=== PATIENT | male | born 1955 | race Caucasian/White ===

== ENCOUNTER 2018-07-17 11:08 | Emergency (ER) | payer BC, SELFPAY ==
[2018-07-17 11:12] VITALS: BP 158/118; PULSE 100; RESP 16; TEMP 36.8; O2SAT 98
--- NOTE | 2018-07-17 11:21 | W.ED.GENAD ---
Discharge Plan Disposition Patient Disposition: HOME Condition: Good Discharge Details Chief Complaint: RashLesion Clinical Impression: Atopic dermatitis Primary Care Provider: Abbi Ren ED Provider: Gera White Home Meds and New Rx's Prescriptions: New hydroxyzine HCl 25 mg tablet 25 mg PO QID PRN (Reason: itching) Qty: 30 RF: 0 prednisone 50 mg tablet 50 mg PO DAILY Qty: 5 RF: 0 No Action acetaminophen-codeine [Tylenol-Codeine #3] 1 EACH tablet 1 ea PO PRN PRNRF: 0 atorvastatin [Lipitor] 40 mg Tablet 40 mg PO DAILY RF: 0 tamsulosin [Flomax] 0.4 mg Capsule RF: 0 Discharge Instructions Instructions: Contact Dermatitis (ED) Additional Instructions: Please take medication as directed. If you notice any worsening of your symptoms, or any new symptoms such as difficulty breathing, vomiting, diarrhea, difficulty swallowing, vomiting, diarrhea, fever, chills, shortness of breath, chest pain, numbness, weakness, or fainting , please return immediately to the emergency department for reevaluation. Please follow up with your primary care provider as soon as possible for reassessment and reevaluation. As always, it was a pleasure participating in your medical care today. Referrals: Abbi Ren [Primary Care Provider] - Medical Decision Making This is a 63-year-old male with no significant past medical history except for previous atopic dermatitis who presents for rash on his wrists, flanks, feet, and elbows. Patient's physical exam demonstrates signs and symptoms consistent with atopic dermatitis, history reveals no aggravating factor. No new medications, antibiotics, recent travel, tick bites, hiking in the [facility] or the [facility]. Physical exam demonstrates dermatographia, negative Nikolsky sign, no oral lesions. Patient is notably pruritic. We will give him Atarax and prednisone here. He will be discharged home with close follow-up with his primary care provider. I had a long discussion regarding red flags for which to immediately return. I have extensively reviewed the treatment plan and discharge instructions with the patient. I have addressed all patient concerns at this time. The patient was made aware of what symptoms to monitor for that would warrant a return to the emergency department. Discussed the plan with the patient, they demonstrate verbal understanding and agreement with our assessment and plan at this time. HPI General Date/Time Provider Initiated Documentation: 07/17/18 11:19. HPI Narrative: This is a 63-year-old male with a past medical history of atopic dermatitis, hematoma surgery a few months ago, and recent throat surgery for sialolith 10 days ago. He presents today for evaluation of rash for the last 48 hours. States that started on his wrists, his bilateral flanks, elbows, knees, and some by his feet and ankles. It is extremely pruritic. He has been taking Benadryl at home as well as [id number] cortisone cream with mild improvement of his symptoms. He did call his primary care provider, they recommended eventual follow-up with dermatology. Patient denies any systemic symptoms of fever, chills, oral lesions, chest pain, shortness of breath, vomiting, diarrhea. He is on no new medications, he is not taking any pain medications. He denies any changes in detergents or soaps. He has no pets, he has not been having any significant activity outside as of late. Patient denies any other aggravating or relieving components. Patient denies any IV or illicit drug use. He denies any pertinent family history. He denies any family history of significant allergy. He himself denies any significant previous history of focal allergies. He denies any recent antibiotic use. Related Data Home Medications Medication Instructions Recorded Confirmed acetaminophen-codeine [Tylenol 1 ea PO PRN PRN 12/24/12 07/17/18 with Codeine #3 Tablet] atorvastatin [Lipitor] 40 mg PO DAILY 07/17/18 07/17/18 hydroxyzine HCl 25 mg PO QID PRN #30 tab 07/17/18 prednisone 50 mg PO DAILY #5 tab 07/17/18 tamsulosin [Flomax] 07/17/18 Previous Rx's Medication Instructions Recorded hydroxyzine HCl 25 mg PO QID PRN #30 tab 07/17/18 prednisone 50 mg PO DAILY #5 tab 07/17/18 Allergies Allergy/AdvReac Type Severity Reaction Status Date / Time No Known Allergies Allergy Unverified 07/17/18 11:21 General Stated Complaint: RashLesion JESSICA: 5 Review of Systems Review of Systems All systems reviewed & are unremarkable except as noted in HPI and below PFSH Social History Smoking/Tobacco Use Status: Former Tobacco Use Exam Narrative Exam Narrative: 1.Const: Well-nourished, Well-developed, appearing stated age 2.Eyes: PERRL, no conjunctival injection, and symmetrical lids. 3.ENT: Atraumatic external nose and ears. Moist MM. Neck: Symmetric, trachea midline, No thyromegaly. No evidence of oral lesions, airway compromise, oropharyngeal edema. 4.CVS: +S1/S2, No murmurs or gallops. Peripheral pulses 2+ and equal in all extremities. Brisk capillary refill in all extremities. 5.RESP: Unlabored respiratory effort. Clear to auscultation bilaterally. No wheezes rales or rhonchi 6.GI: Soft, Nontender/Nondistended, No hepatosplenomegaly. No guarding or rebound. 7.MSK: Normocephalic/Atraumatic, Extremities w/o deformity or ttp No cyanosis or clubbing, Normal movement of all extremities 8.Skin: Warm, Dry. Mildly erythematous flat macular blanching areas of atopic dermatitis on the patient's wrists, none on the hands. Some evidence of erythema on the elbows, as well as the patient's back flanks bilaterally. As well as some erythema on the feet. All is notably pruritic. Negative Nikolsky sign. Patient does demonstrate dermatographia on exam. No other significant lesions, no vesicles, no bulla. No evidence of tics, arthropods, or hymenoptera bites. 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 Sensation grossly intact, no focal neurologic deficits. 10.Psych: (AAO) x3. Appropriate mood and affect Course Vital Signs Temperature 36.8 C 07/17/18 11:12 Pulse 100 H 07/17/18 11:12 Respiratory Rate 16 07/17/18 11:12 Blood Pressure 158/118 H 07/17/18 11:12 Pulse Oximetry 98 07/17/18 11:12 Temperature 36.8 C 07/17/18 11:12 Temperature Source Skin 07/17/18 11:12 Pulse 100 H 07/17/18 11:12 Respiratory Rate 16 07/17/18 11:12 Respiratory Effort Non-Labored 07/17/18 11:14 Blood Pressure 158/118 H 07/17/18 11:12 Pulse Oximetry 98 07/17/18 11:12
[2018-07-17] MEDS: hydrOXYzine HCL 25 MG TAB PO (11:26)
--- NOTE | 2018-07-17 11:36 | ED.GENADUL_ITS ---
Discharge Plan Disposition Patient Disposition: HOME Condition: Good Discharge Details Chief Complaint: RashLesion Clinical Impression: Atopic dermatitis Primary Care Provider: Abib Ren ED Provider: Gera White Home Meds and New Rx's Prescriptions: New hydroxyzine HCl 25 mg tablet 25 mg PO QID PRN (Reason: itching) Qty: 30 RF: 0 prednisone 50 mg tablet 50 mg PO DAILY Qty: 5 RF: 0 No Action acetaminophen-codeine [Tylenol-Codeine #3] 1 EACH tablet 1 ea PO PRN PRNRF: 0 atorvastatin [Lipitor] 40 mg Tablet 40 mg PO DAILY RF: 0 tamsulosin [Flomax] 0.4 mg Capsule RF: 0 Discharge Instructions Instructions: Contact Dermatitis (ED) Additional Instructions: Please take medication as directed. If you notice any worsening of your symptoms, or any new symptoms such as difficulty breathing, vomiting, diarrhea, difficulty swallowing, vomiting, diarrhea, fever, chills, shortness of breath, chest pain, numbness, weakness, or fainting , please return immediately to the emergency department for reevaluation. Please follow up with your primary care provider as soon as possible for reassessment and reevaluation. As always, it was a pleasure participating in your medical care today. Referrals: Abbi Ren [Primary Care Provider] - Medical Decision Making This is a 63-year-old male with no significant past medical history except for previous atopic dermatitis who presents for rash on his wrists, flanks, feet, and elbows. Patient's physical exam demonstrates signs and symptoms consistent with atopic dermatitis, history reveals no aggravating factor. No new medications, antibiotics, recent travel, tick bites, hiking in the [facility] or the [facility]. Physical exam demonstrates dermatographia, negative Nikolsky sign, no oral lesions. Patient is notably pruritic. We will give him Atarax and prednisone here. He will be discharged home with close follow-up with his primary care provider. I had a long discussion regarding red flags for which to immediately return. I have extensively reviewed the treatment plan and discharge instructions with the patient. I have addressed all patient concerns at this time. The patient was made aware of what symptoms to monitor for that would warrant a return to the emergency department. Discussed the plan with the patient, they demonstrate verbal understanding and agreement with our assessment and plan at this time. HPI General Date/Time Provider Initiated Documentation: 07/17/18 11:19 . HPI Narrative: This is a 63-year-old male with a past medical history of atopic dermatitis, hematoma surgery a few months ago, and recent throat surgery for sialolith 10 days ago. He presents today for evaluation of rash for the last 48 hours. States that started on his wrists, his bilateral flanks , elbows, knees, and some by his feet and ankles. It is extremely pruritic. He has been taking Benadryl at home as well as [id number] cortisone cream with mild improvement of his symptoms. He did call his primary care provider, they recommended eventual follow-up with dermatology. Patient denies any systemic symptoms of fever, chills, oral lesions, chest pain, shortness of breath, vomiting, diarrhea. He is on no new medications, he is not taking any pain medications. He denies any changes in detergents or soaps. He has no pets , he has not been having any significant activity outside as of late. Patient denies any other aggravating or relieving components. Patient denies any IV or illicit drug use. He denies any pertinent family history. He denies any family history of significant allergy. He himself denies any significant previous history of focal allergies. He denies any recent antibiotic use. Related Data Home Medications Medication Instructions Recorded Confirmed acetaminophen-codeine [Tylenol 1 ea PO PRN PRN 12/24/12 07/17/18 with Codeine #3 Tablet] atorvastatin [Lipitor] 40 mg PO DAILY 07/17/18 07/17/18 hydroxyzine HCl 25 mg PO QID PRN #30 tab 07/17/18 prednisone 50 mg PO DAILY #5 tab 07/17/18 tamsulosin [Flomax] 07/17/18 Previous Rx's Medication Instructions Recorded hydroxyzine HCl 25 mg PO QID PRN #30 tab 07/17/18 prednisone 50 mg PO DAILY #5 tab 07/17/18 Allergies Allergy/AdvReac Type Severity Reaction Status Date / Time No Known Allergies Allergy Unverified 07/17/18 11:21 General Stated Complaint: RashLesion JESSICA: 5 Review of Systems Review of Systems All systems reviewed & are unremarkable except as noted in HPI and below PFSH Social History Smoking/Tobacco Use Status: Former Tobacco Use Exam Narrative Exam Narrative: 1.Const: Well-nourished, Well-developed, appearing stated age 2.Eyes: PERRL, no conjunctival injection, and symmetrical lids. 3.ENT: Atraumatic external nose and ears. Moist MM. Neck: Symmetric, trachea midline, No thyromegaly. No evidence of oral lesions, airway compromise, oropharyngeal edema. 4.CVS: +S1/S2, No murmurs or gallops. Peripheral pulses 2+ and equal in all extremities. Brisk capillary refill in all extremities. 5.RESP: Unlabored respiratory effort. Clear to auscultation bilaterally. No wheezes rales or rhonchi 6.GI: Soft, Nontender/Nondistended, No hepatosplenomegaly. No guarding or rebound. 7.MSK: Normocephalic/Atraumatic, Extremities w/o deformity or ttp No cyanosis or clubbing, Normal movement of all extremities 8.Skin: Warm, Dry. Mildly erythematous flat macular blanching areas of atopic dermatitis on the patient's wrists, none on the hands. Some evidence of erythema on the elbows, as well as the patient's back flanks bilaterally. As well as some erythema on the feet. All is notably pruritic. Negative Nikolsky sign. Patient does demonstrate dermatographia on exam. No other significant lesions, no vesicles, no bulla. No evidence of tics, arthropods, or hymenoptera bites. 9.Neuro: vocational evaluator II-XII grossly intact. Sensation grossly intact, no focal neurologic deficits. 10.Psych: (AAO) x3. Appropriate mood and affect Course Vital Signs Temperature 36.8 C 07/17/18 11:12 Pulse 100 H 07/17/18 11:12 Respiratory Rate 16 07/17/18 11:12 Blood Pressure 158/118 H 07/17/18 11:12 Pulse Oximetry 98 07/17/18 11:12 Temperature 36.8 C 07/17/18 11:12 Temperature Source Skin 07/17/18 11:12 Pulse 100 H 07/17/18 11:12 Respiratory Rate 16 07/17/18 11:12 Respiratory Effort Non-Labored 07/17/18 11:14 Blood Pressure 158/118 H 07/17/18 11:12 Pulse Oximetry 98 07/17/18 11:12
== END 2018-07-17 11:34 | disposition home or self-care (01) ==
PROVIDERS: Emergency Provider Student in an Organized Health Care Education/Training Program; PCP Nurse Practitioner
DX: L20.9 Atopic dermatitis, unspecified (principal)
CPT/HCPCS: 99283; J7512